=== PATIENT | female | born 2000 | race African-American/Black ===

== ENCOUNTER 2025-05-07 21:45 | Emergency (ER) | payer OTHER ==
[~2025-05-07] VITALS: Ht 162.6 cm; Wt 57.0 kg
[2025-05-07 21:57] VITALS: O2SAT 100
[2025-05-07 22:18] VITALS: BP 112/67; PULSE 78; RESP 16; TEMP 36.9; O2SAT 100
== END 2025-05-08 00:41 | disposition left against medical advice (07) ==
LOC: ER 21:45
DX: H57.11 Ocular pain, right eye (principal); Y08.89XA Assault by other specified means, initial encounter; Y93.89 Activity, other specified; Y92.89 Other specified places as the place of occurrence of the external cause; Y99.8 Other external cause status
CPT/HCPCS: 99281